=== PATIENT | male | born 1975 | race Caucasian/White ===

== ENCOUNTER → 2020-12-01 | Outpatient (CLI) | payer BC | LOC: WOUNDCARE 13:53 | PROVIDERS: ATTEND Surgery | DX: L98.492 Non-pressure chronic ulcer of skin of other sites with fat layer exposed (principal); L98.491 Non-pressure chronic ulcer of skin of other sites limited to breakdown of skin; L73.9 Follicular disorder, unspecified; R21 Rash and other nonspecific skin eruption | CPT/HCPCS: A6260; G0463; 99202 ==